=== PATIENT | female | born 1960 | race Caucasian/White ===

== ENCOUNTER 2019-07-05 12:25 | Inpatient (IN) | payer MEDICARE ==
[2019-07-05] MEDS ORDERED: SODIUM CHLORIDE 0.9% 500 ML 500 ML IV STA (13:08)
--- NOTE | 2019-07-05 13:13 | ED ---
General Adult HPI - General Chief complaint: Neuro Symptoms/Deficit Stated complaint: Arm Numbness, slurred speech Time Seen by Provider: 07/05/19 12:30 Source: patient, RN notes reviewed, old records reviewed Mode of arrival: ambulatory Limitations: no limitations - History of Present Illness Initial comments: This is a 58-year-old female presents emergency department stating that she started having symptoms on Monday which occurred in the evening she stated that her leg was weak and she was finding it a little more difficult to walk. Patient states Monday she felt dizzy had slight weakness in the arm and continue to have some weakness in the leg. Patient states on Monday she was unable to write her name in the week numbness of the arm and leg persisted until today. Patient denies any visual disturbance patient denies headache. Patient denies any left-sided disturbance. Patient denies any facial droop or slurred speech. Patient states she's had no history of stroke. Patient denies any chest pain shortness of breath or difficulty breathing. Patient has a recent fever chills or cough. Patient denies any dysuria hematuria urinary frequency. Patient denies any abdominal pain patient's nausea vomiting diarrhea. Patient denies any urinary incontinence or retention. - Related Data Home Medications Medication Instructions Recorded Confirmed Unable To Assess [Unable to Assess] 07/03/14 07/03/14 Allergies Allergy/AdvReac Type Severity Reaction Status Date / Time Sulfa (Sulfonamide Allergy Unknown Verified 07/05/19 12:31 Antibiotics) Review of Systems ROS Statement: Those systems with pertinent positive or pertinent negative responses have been documented in the HPI. ROS Other: All systems not noted in ROS Statement are negative. Past Medical History Past Medical History: Hypertension, Thyroid Disorder History of Any Multi-Drug Resistant Organisms: None Reported Additional Past Surgical History / Comment(s): thyroid removed Past Psychological History: No Psychological Hx Reported Smoking Status: Current every day smoker Past Alcohol Use History: None Reported Past Drug Use History: Marijuana General Exam - General Exam Comments Initial Comments: GENERAL: Patient is well-developed and well-nourished. Patient is nontoxic and well- hydrated and is in mild distress. ENT: Neck is soft and supple. No significant lymphadenopathy is noted. Oropharynx is clear. Moist mucous membranes. Neck has full range of motion without eliciting any pain. EYES: The sclera were anicteric and conjunctiva were pink and moist. Extraocular movements were intact and pupils were equal round and reactive to light. Eye lids were unremarkable. PULMONARY: Unlabored respirations. Good breath sounds bilaterally. No audible rales rhonchi or wheezing was noted. CARDIOVASCULAR: There is a regular rate and rhythm without any murmurs gallops or rubs. ABDOMEN: Soft and nontender with normal bowel sounds. No palpable organomegaly was noted. There is no palpable pulsatile mass. SKIN: Skin is clear with no lesions or rashes and otherwise unremarkable. NEUROLOGIC: Patient is alert and oriented x3. Cranial nerves II through XII are grossly intact. She has 2 out of 5 medical billing assistant strength on the right and unable to follow finger-nose testing on the right. Patient also has right leg weakness compared the left when trying to lift the leg plantar and dorsiflexion are normal. Patient has no appreciable sensation loss. Normal speech, volume and content. Symmetrical smile. MUSCULOSKELETAL: Normal extremities with adequate strength and full range of motion. LYMPHATICS: No significant lymphadenopathy is noted PSYCHIATRIC: Normal psychiatric evaluation. Limitations: no limitations Course Vital Signs 07/05/19 12:29 Temperature 98.1 F Pulse Rate 99 Respiratory 16 Rate Blood Pressure 166/131 O2 Sat by Pulse 99 Oximetry Medical Decision Making - Medical Decision Making EKG shows sinus tachycardia at 102 bpm LA interval 132 QRS is 78 QT interval 354 QTC is 461. Patient's EKG shows no ST segment elevation or depression or T wave abnormalities are noted. CT of the brain shows no acute abnormality. I spoke with Dr. trammell he agreed to admit the patient admitted the patient I wrote admitting orders. - Lab Data Result diagrams: 07/05/19 12:48 07/05/19 12:48 Lab Results 07/05/19 07/05/19 07/05/19 Range/Units 12:48 12:48 12:48 WBC 9.0 (3.8-10.6) k/uL RBC 4.47 (3.80-5.40) m/uL Hgb 14.1 (11.4-16.0) gm/dL Hct 41.8 (34.0-46.0) % MCV 93.6 (80.0-100.0) fL MCH 31.6 (25.0-35.0) pg MCHC 33.8 (31.0-37.0) g/dL RDW 12.7 (11.5-15.5) % Plt Count 388 (150-450) k/uL Neutrophils % 71 % Lymphocytes % 20 % Monocytes % 5 % Eosinophils % 1 % Basophils % 1 % Neutrophils # 6.4 (1.3-7.7) k/uL Lymphocytes # 1.8 (1.0-4.8) k/uL Monocytes # 0.4 (0-1.0) k/uL Eosinophils # 0.1 (0-0.7) k/uL Basophils # 0.0 (0-0.2) k/uL PT 9.5 (9.0-12.0) sec INR 0.9 (<1.2) APTT 26.3 (22.0-30.0) sec Sodium 140 (137-145) mmol/L Potassium 3.6 (3.5-5.1) mmol/L Chloride 103 (98-107) mmol/L Carbon Dioxide 28 (22-30) mmol/L Anion Gap 9 mmol/L BUN 22 H (7-17) mg/dL Creatinine 0.80 (0.52-1.04) mg/dL Est GFR (CKD-EPI)AfAm >90 (>60 ml/min/1.73 sqM) Est GFR (CKD-EPI)NonAf 82 (>60 ml/min/1.73 sqM) Glucose 143 H (74-99) mg/dL Calcium 10.8 H (8.4-10.2) mg/dL Total Bilirubin 0.5 (0.2-1.3) mg/dL AST 31 (14-36) U/L ALT 32 (4-34) U/L Alkaline Phosphatase 114 (38-126) U/L Troponin I (0.000-0.034) ng/mL Total Protein 7.9 (6.3-8.2) g/dL Albumin 4.5 (3.5-5.0) g/dL 07/05/19 Range/Units 12:48 WBC (3.8-10.6) k/uL RBC (3.80-5.40) m/uL Hgb (11.4-16.0) gm/dL Hct (34.0-46.0) % MCV (80.0-100.0) fL MCH (25.0-35.0) pg MCHC (31.0-37.0) g/dL RDW (11.5-15.5) % Plt Count (150-450) k/uL Neutrophils % % Lymphocytes % % Monocytes % % Eosinophils % % Basophils % % Neutrophils # (1.3-7.7) k/uL Lymphocytes # (1.0-4.8) k/uL Monocytes # (0-1.0) k/uL Eosinophils # (0-0.7) k/uL Basophils # (0-0.2) k/uL PT (9.0-12.0) sec INR (<1.2) APTT (22.0-30.0) sec Sodium (137-145) mmol/L Potassium (3.5-5.1) mmol/L Chloride (98-107) mmol/L Carbon Dioxide (22-30) mmol/L Anion Gap mmol/L BUN (7-17) mg/dL Creatinine (0.52-1.04) mg/dL Est GFR (CKD-EPI)AfAm (>60 ml/min/1.73 sqM) Est GFR (CKD-EPI)NonAf (>60 ml/min/1.73 sqM) Glucose (74-99) mg/dL Calcium (8.4-10.2) mg/dL Total Bilirubin (0.2-1.3) mg/dL AST (14-36) U/L ALT (4-34) U/L Alkaline Phosphatase (38-126) U/L Troponin I <0.012 (0.000-0.034) ng/mL Total Protein (6.3-8.2) g/dL Albumin (3.5-5.0) g/dL Disposition Clinical Impression: Cerebrovascular accident (CVA) Disposition: ADMITTED IP TO THIS [facility] Referrals: None,Stated [Primary Care Provider] - 1-2 days Time of Disposition: 15:06
[2019-07-05 13:30] LABS: Basophils % (A) 1 %; Eosinophils # (A) 0.1 k/uL (0-0.7); Eosinophils % (A) 1 %; HCT 41.8 % (34.0-46.0); HGB 14.1 gm/dL (11.4-16.0); Lymphocytes # (A) 1.8 k/uL (1.0-4.8); Lymphocytes % (A) 20 %; MCH 31.6 pg (25.0-35.0); MCHC 33.8 g/dL (31.0-37.0); MCV 93.6 fL (80.0-100.0); Mean Platelet Volume 7.2; Monocytes # (A) 0.4 k/uL (0-1.0); Monocytes % (A) 5 %; Neutrophils # (A) 6.4 k/uL (1.3-7.7); Neutrophils % (A) 71 %; Platelet Count 388 k/uL (150-450); RBC 4.47 m/uL (3.80-5.40); RDW 12.7 % (11.5-15.5)
[2019-07-05 13:35] LABS: ALT 32 U/L (4-34); AST 31 U/L (14-36); African American GFR (CKD) >90 (>60 ml/min/1.73 sqM); Albumin 4.5 g/dL (3.5-5.0); Alkaline Phosphatase 114 U/L (38-126); Anion Gap 9 mmol/L; Blood Urea Nitrogen 22 mg/dL (7-17); Calcium 10.8 mg/dL (8.4-10.2); Carbon Dioxide 28 mmol/L (22-30); Chloride 103 mmol/L (98-107); Glucose 143 mg/dL (74-99); Non-African American GFR(CKD) 82 (>60 ml/min/1.73 sqM); Potassium 3.6 mmol/L (3.5-5.1); Sodium 140 mmol/L (137-145); Total Bilirubin 0.5 mg/dL (0.2-1.3); Total Protein 7.9 g/dL (6.3-8.2)
[2019-07-05 13:40] LABS: INR 0.9 (<1.2); Partial Thromboplastin Time 26.3 sec (22.0-30.0); Prothrombin Time 9.5 sec (9.0-12.0)
--- NOTE | 2019-07-05 13:48 | CT ---
EXAMINATION TYPE: CT brain wo con for TPA DATE OF EXAM: 07/05/2019 COMPARISON: None INDICATION: Neuro deficit DLP: 1052.4 mGycm, Automated exposure control for dose reduction was used. CONTRAST: None CT of the brain is performed utilizing 3 mm thick sections through the posterior fossa and 3 mm thick sections through the remaining calvarium. Study is performed within 24 hours of arrival to the hosp ital. Dolichoectasia is evident. The vessels are diffusely dense which can be related to the patient's hemo globin status. No abnormal hyperdensity is present to suggest an acute intracranial hemorrhage. No mass lesion is evident. No acute infarcts are evident. Ventricles and sulci are appropriate for the patient age. Paranasal sinuses and mastoid air cells within the [id number] are clear. IMPRESSIONS: 1. No acute intracranial process. 2. Dolichoectasia of the basilar artery
--- NOTE | 2019-07-05 13:52 | XR ---
EXAMINATION TYPE: XR chest 2V DATE OF EXAM: 07/05/2019 COMPARISON: Prior chest x-ray dated 04/12/2012 HISTORY: Altered mental status TECHNIQUE: Frontal and lateral views of the chest are obtained. FINDINGS: There are prominent lung volumes, there is flattening of hemidiaphragms. Thoracic spondylo sis is present. The aorta is dense. There are overlying cardiac leads. Arthropathy noted in left shou lder radiating in right, there may be synovial osteochondromatosis. There is no focal air space opaci ty, pleural effusion, or pneumothorax seen. The cardiac silhouette size is within normal limits. T he osseous structures are intact. Suspect a spinal curvature. IMPRESSION: No acute cardiopulmonary process.
--- NOTE | 2019-07-05 16:09 | CT ---
EXAMINATION TYPE: CT angio head neck DATE OF EXAM: 07/05/2019 HISTORY: Left sided weakness COMPARISON: None CT DLP: 1052.4 mGycm. Automated Exposure Control for Dose Reduction was Utilized. TECHNIQUE: CTA scan of the neck is performed with IV Contrast, patient injected with 65 mL of Isovue 370, axial images are obtained, coronal and sagittal reformatted images are reviewed. Three-D recons tructed images are created on an independent workstation and reviewed. Source images are reviewed. FINDINGS: Carotid/Vascular Structures: There is a three-vessel arch. No significant flow-limiting stenosis at t he carotid bifurcations is evident. Internal carotid arteries appear normal. Cervical of [place]: Dolichoectasia is again evident. Posterior cerebral vasculature is unremarkable. Internal carotid arteries bifurcate normally into A1 and M1 segments. A2 segments are normal. The ant erior communicating artery is patent. Left Posterior communicating artery is patent. Right posterior communicating artery is patent. IMPRESSION: 1. No flow-limiting stenosis bilateral carotid bifurcations. 2. Dolichoectasia.
--- NOTE | 2019-07-05 16:13 | P.CNNES ---
History of Present Illness Consult date: 07/05/19 Requesting physician: Ludin Patel Reason for Consult: CVA History of Present Illness: Patient is a 58-year-old female with history of hypertension, tobacco use, states that on Monday night 07/01/2019 she wanted to let the dog out, she noticed weakness in the right leg. The next day she felt dizziness, but was still able to drive her car. She still could walk. Next day, on Monday, her right hand felt weak, could not use her right hand. On she just stayed in the home and did not do much. As her symptoms persisted, she decided to come to the ER. patient denies any slurred speech or problem with the vision. She denies any numbness or tingling. Denies headache. Patient's vital signs in the ER showed blood pressure 166/131, normal temperature Patient underwent computed tomography scan of the head, which revealed no acute intracranial process. Dolichoectasia of the basilar artery. On my review, there is a slight hyperdensity in the left basal ganglia, concerning for small petechial hemorrhage. patient had a CTA of head and neck, the results of which is pending, but according to ED physician's report, was told negative, with no large vessel occlusion. EKG shows sinus tachycardia. Chest x-ray showed no acute process. patient's CBC, PT/PTT is normal. Chem-7 is normal. Liver panel normal. patient has history of hypertension, denies diabetes. She has smoked one third pack per day since last 30 years. Patient does not take any medication prescribed. She does take Excedrin almost everyday for chronic migraines, sometimes up to 3 times a day. Review of Systems patient denies any double vision, loss of vision, focal numbness. patient does complaint of focal weakness.denies any chest pain, shortness of breath. Past Medical History Past Medical History: Hypertension, Thyroid Disorder History of Any Multi-Drug Resistant Organisms: None Reported Additional Past Surgical History / Comment(s): thyroid removed Past Psychological History: No Psychological Hx Reported Smoking Status: Current every day smoker Past Alcohol Use History: None Reported Past Drug Use History: Marijuana Medications and Allergies Home Medications Medication Instructions Recorded Confirmed Type Unable To Assess [Unable to Assess] 07/03/14 07/03/14 History Allergies Allergy/AdvReac Type Severity Reaction Status Date / Time Sulfa (Sulfonamide Allergy Unknown Verified 07/05/19 12:31 Antibiotics) Physical Examination - Vital Signs Vital Signs: Vital Signs Temp Pulse Resp BP Pulse Ox 07/05/19 12:29 98.1 F 99 16 166/131 99 Intake and Output 07/05/19 07/05/19 07/05/19 06:59 14:59 22:59 Other: Weight 61.235 kg on examination patient is a middle aged female, very pleasant, in no distress. She is alert and awake fully oriented. Her speech and language functions are significant for mild dysarthria but no aphasia. On cranial nerve examination pupils are round and reactive to light, visual soriano are full on confrontation with no neglect. She patient has mild right facial weakness, central type. Tongue protrudes to the midline. Palatal elevation and sensation normal. Patient has significant right pronator drift. The strength is normal in left arm and both legs. In the right upper limb, deltoid is 4+ to 5-, biceps and triceps are normal. Baggageman is only 2-3. Sensations are very slightly decreased in the right arm as compared to the left. Patient's fine motor is significantly slow on the right. Patient walks with slight limp on the right. There is no carotid bruit or murmur, peripheral pulses present. Results - Laboratory Findings CBC and BMP: 07/05/19 12:48 07/05/19 12:48 Abnormal Lab Findings: Abnormal Labs 07/05/19 12:48 BUN 22 H Glucose 143 H Calcium 10.8 H Assessment and Plan Assessment: * 58-year-old female with history of hypertension, tobacco use, admitted with right facial brachial weakness, with slight dysarthria. Computed tomography scan of the head revealed no acute ischemia, although revealed small hyperdensity in the left basal ganglia, concerning for small basal ganglionic hemorrhage, versus basal ganglia calcification. * Hypertension * Tobacco use. Plan: * Patient to undergo a stat MRI of the brain to evaluate for an acute stroke. * CTA of head and neck has been completed, the results are pending. * Will hold off on antiplatelet medication, until intracranial hemorrhage has been ruled out. * We will check fasting a.m. lipid panel and hemoglobin A1c. * 2-D echo with bubble study to rule out PFO. * Recommended tobacco cessation. * Dr. Ganley will be covering over the weekend. Addendum: Patient's MRI was performed, which revealed no evidence of intracranial hemorrhage. There is evidence of an acute ischemic stroke involving the posterior limb of the left internal capsule, most likely lacunar stroke. Patient will be started on Plavix 75 mg daily with aspirin 81 mg. CTA of head and neck showed no flow-limiting stenosis bilateral carotid bifurcation. Dolichoectasia. PT OT evaluate gait. Speech therapy.
--- NOTE | 2019-07-05 16:26 | MR ---
EXAMINATION TYPE: MR brain wo con DATE OF EXAM: 07/05/2019 COMPARISON: 07/05/2019 CT brain HISTORY: Rt arm numbness and Rt leg weakness CONTRAST: Performed utilizing 0 mL intravenous Gadavist gadolinium contrast. TECHNIQUE: Multiplanar, multiecho imaging on a 3.0 Martha magnet is performed through the brain. Stud y is performed within 24 hours of arrival to the hospital. The craniovertebral junction is normal. The pituitary is normal. Diffusion-weighted imaging is performed. There is a small focus of increased signal on diffusion wit hin the posterior left basal ganglion. This is compatible with acute ischemic area. A suspicious abnormality to suggest hemorrhage in the more mid anterior portion of the basal ganglia is not evident. There are multiple subcortical periventricular and deep white matter changes present scattered throug hout the brain, likely on the basis of chronic white matter ischemic changes. Ventricles and sulci are appropriate for the patient age. Patient's dolichoectasia is again evident. IMPRESSIONS: 1. 0.5 x 0.9 cm diffusion hyperintensity compatible with an acute ischemic change adjacent to the pos terior limb internal capsule left basal ganglion. 2. No suspicious blooming artifact suggest intracranial hemorrhage. 3. Chronic appearing periventricular white matter ischemic changes. 4. Dolichoectasia
[2019-07-05] MEDS ORDERED: hydrALAZINE HCL 20 MG/ML 1 ML VIAL IVP PRN (17:22)
[2019-07-05 17:24] LABS: Cholesterol 264 mg/dL (<200); HDL Cholesterol 69 mg/dL (40-60); LDL Cholesterol,Calculated 160 mg/dL (0-99); Triglycerides 175 mg/dL (<150)
[2019-07-05] MEDS: NICOTINE 21MG/24HR PATCH TRANSDERM SCH (17:32)
[2019-07-05] MEDS: LISINOPRIL 10 MG TAB PO SCH (17:32)
[2019-07-05] MEDS: CLOPIDOGREL 75 MG TAB PO SCH (19:35)
[2019-07-05] MEDS: ASPIRIN 81 MG PO SCH (19:35)
[2019-07-05] MEDS: HEPARIN SODIUM,PORCINE 5,000 UNIT/ML 1 ML VIAL SQ SCH (22:33)
[2019-07-05] MEDS: ATORVASTATIN 40 MG TAB PO SCH (22:33)
[2019-07-06 01:20] LABS: Hemoglobin A1C 6.2 % (4.0-6.0)
[2019-07-06 06:34] LABS: African American GFR (CKD) >90 (>60 ml/min/1.73 sqM); Anion Gap 6 mmol/L; Basophils % (A) 1 %; Blood Urea Nitrogen 18 mg/dL (7-17); Calcium 9.9 mg/dL (8.4-10.2); Carbon Dioxide 29 mmol/L (22-30); Chloride 106 mmol/L (98-107); Cholesterol 240 mg/dL (<200); Eosinophils # (A) 0.2 k/uL (0-0.7); Eosinophils % (A) 3 %; Glucose 96 mg/dL (74-99); HCT 42.7 % (34.0-46.0); HDL Cholesterol 67 mg/dL (40-60); LDL Cholesterol,Calculated 147 mg/dL (0-99); Lymphocytes # (A) 2.1 k/uL (1.0-4.8); Lymphocytes % (A) 28 %; MCH 31.2 pg (25.0-35.0); MCHC 32.9 g/dL (31.0-37.0); MCV 94.7 fL (80.0-100.0); Mean Platelet Volume 6.8; Monocytes # (A) 0.5 k/uL (0-1.0); Monocytes % (A) 7 %; Neutrophils # (A) 4.4 k/uL (1.3-7.7); Neutrophils % (A) 58 %; Non-African American GFR(CKD) >90 (>60 ml/min/1.73 sqM); Platelet Count 345 k/uL (150-450); RDW 12.7 % (11.5-15.5); Sodium 141 mmol/L (137-145); Triglycerides 128 mg/dL (<150); WBC 7.5 k/uL (3.8-10.6)
[2019-07-06] MEDS ORDERED: ALPRAZolam 0.5 MG TAB PO PRN (08:54)
--- NOTE | 2019-07-06 09:05 | P.PN ---
Subjective this is a pleasant 58 years old femalewith past medical history of hypertension, hypothyroidism status post thyroid surgery, secured smoker every day. Presents with weakness of the right upper and lower extremities. Patient states that symptoms since started 4 days ago with right leg weakness that is improved gradually, next day she had some dizziness which is also resolved over 2 days ago she started having weakness in her right hand which is gets progress yesterday to both right hand and leg however she was babysitting so she did not come to the hospital until today. Currently she barely can move her right upper extremity and her first beater is so weak however her right lower extremity is moving better although is weaker compared to the left side. Patient denies blurred vision or swallowing difficulty or slurred speech. No headache. Patient smokes about a pack which last for 4 days. She denies alcohol or illicit tracts. Vitas looks stable and blood pressure is 166/131.CBC, INR, BMP and liver enzymes were unremarkable. Troponin is negative.chest x-ray: No acute process. EKG showing sinus tachycardia at [address]-T changes. CT of the brain showing no acute process. 07/06/2019 patient is fully awake and oriented this morning she looks anxious. She denies chest pain or dyspnea. She still have the same weakness in her right upper extremity and to lesser extent her right lower extremity.vitals are stable and labs are unremarkable, except for increased triglycerides. Patient was started on Lipitor. She used to use Exidine which has aspirin and it for her headaches frequently at home about 6 tablets each day. We'll stop that and asked the patient to take baby aspirin 81 mg daily and she agrees. Patient is counseled about smoking and nicotine patch is offered and ordered. MRI of the brain showing left basal ganglion stroke however CT of the head and neck is negative. Patient informed about her diagnosis of stroke. Stop Excedrin and start baby aspirin and Plavix as per neurologist recommendation. Consult in a service for rehab, patient counseled that she agrees needed. review of systems CONSTITUTIONAL: No fever, no malaise, no fatigue. HEENT: No recent visual problems or hearing problems. Denied any sore throat. CARDIOVASCULAR: No orthopnea, PND, no palpitations, no syncope. PULMONARY: No shortness of breath, no cough, no hemoptysis. GASTROINTESTINAL: No diarrhea, no nausea, no vomiting, no abdominal pain. Normoactive bowel sounds. NEUROLOGICAL: No headaches, HEMATOLOGICAL: Denies any bleeding or petechiae. GENITOURINARY: Denies any burning micturition, frequency, or urgency. MUSCULOSKELETAL/RHEUMATOLOGICAL: Denies any joint pain, swelling, or any muscle pain. ENDOCRINE: Denies any polyuria or polydipsia. Objective - Vital Signs Vital signs: Vital Signs Temp 97.9 F 07/06/19 04:00 Pulse 67 07/06/19 04:00 Resp 18 07/06/19 04:00 BP 135/90 07/06/19 04:00 Pulse Ox 100 07/06/19 04:00 Intake & Output 07/05/19 07/06/19 07/06/19 18:59 06:59 18:59 Intake Total 240 Balance 240 Weight 61.235 kg 60.2 kg Intake: Oral 240 Other: # Voids 0 2 - Exam GENERAL: The patient is alert and oriented x3, not in any acute distress. Well developed, well nourished. HEENT: Pupils are round and equally reacting to light. EOMI. No scleral icterus. No conjunctival pallor. Normocephalic, atraumatic. No pharyngeal erythema. No thyromegaly. CARDIOVASCULAR: S1 and S2 present. No murmurs, rubs, or gallops. PULMONARY: Chest is clear to auscultation, no wheezing or crackles. ABDOMEN: Soft, nontender, nondistended, normoactive bowel sounds. No palpable organomegaly. MUSCULOSKELETAL: No joint swelling or deformity. EXTREMITIES: No cyanosis, clubbing, or pedal edema. -NEUROLOGICAL: patient has dictated of the face towards the left side.her right upper extremity is weak 2-3/5, and the right lower extremity is weak 4/5. Left side strength is 5/5. Sensation is intact. SKIN: No rashes. No petechiae - Labs CBC & Chem 7: 07/06/19 05:55 07/06/19 05:55 Labs: Abnormal Lab Results - Last 24 Hours (Table) 07/05/19 07/05/19 07/05/19 Range/Units 12:48 12:48 12:48 BUN 22 H (7-17) mg/dL Glucose 143 H (74-99) mg/dL Hemoglobin A1c 6.2 H (4.0-6.0) % Calcium 10.8 H (8.4-10.2) mg/dL Triglycerides 175 H (<150) mg/dL Cholesterol 264 H (<200) mg/dL LDL Cholesterol, Calc 160 H (0-99) mg/dL HDL Cholesterol 69 H (40-60) mg/dL 07/06/19 Range/Units 05:55 BUN 18 H (7-17) mg/dL Glucose (74-99) mg/dL Hemoglobin A1c (4.0-6.0) % Calcium (8.4-10.2) mg/dL Triglycerides (<150) mg/dL Cholesterol 240 H (<200) mg/dL LDL Cholesterol, Calc 147 H (0-99) mg/dL HDL Cholesterol 67 H (40-60) mg/dL Assessment and Plan Assessment: 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 Continue with aspirin and Plavix.. we'll consult Dr. Sigala service for possible rehab.continue with Lipitor, echocardiogram. Nicotine patch. add xanax for anxiety. Stop home dose of Excedrin and continue with baby aspirin and Plavix, patient is counseled about this recommendation and she agrees. Labs and medication were reviewed.. Continue same treatment. Continue with symptomatic treatment. Resume home medication. Monitor lytes and vitals. DVT and GI prophylaxis. Further recommendations of the clinical course of the patient DVT prophylaxis: Subcutaneous heparin GI Prophylaxis: Pepcid PT/OT: Pending Prognosis is guarded
[2019-07-06] MEDS: PANTOPRAZOLE 40 MG/10 ML VIAL IVP SCH (09:26)
[2019-07-06] MEDS: ASPIRIN 81 MG PO SCH (09:26)
[2019-07-06] MEDS: CLOPIDOGREL 75 MG TAB PO SCH (09:26)
[2019-07-06] MEDS: LISINOPRIL 10 MG TAB PO SCH (09:26)
[2019-07-06] MEDS: HEPARIN SODIUM,PORCINE 5,000 UNIT/ML 1 ML VIAL SQ SCH ×2 (09:26→21:32)
[2019-07-06] MEDS: ATORVASTATIN 40 MG TAB PO SCH (09:26)
[2019-07-06] MEDS: NICOTINE 21MG/24HR PATCH TRANSDERM SCH (09:27)
[2019-07-06] MEDS ORDERED: ACETAMINOPHEN TAB 325 MG TAB PO PRN (09:50)
--- NOTE | 2019-07-06 11:01 | ECHOF ---
Referral Reason:CVA MEASUREMENTS -------- HEIGHT: 152.4 cm WEIGHT: 59.9 kg BP: 135/90 IVSd: 1.7 cm (0.6 - 1.1) LVIDd: 3.7 cm (3.9 - 5.3) LVPWd: 1.5 cm (0.6 - 1.1) IVSs: 1.9 cm LVIDs: 2.6 cm LVPWs: 1.9 cm LAESV Index (A-L): 27.83 ml/m Ao Diam: 3.8 cm (2.0 - 3.7) AV Cusp: 2.3 cm (1.5 - 2.6) LA Diam: 3.1 cm (2.7 - 3.8) MV EXCURSION: 12.396 mm (> 18.000) MV EF SLOPE: 66 mm/s (70 - 150) EPSS: 0.6 cm MV E Lew: 0.56 m/s MV DecT: 207 ms MV A Lew: 0.76 m/s MV E/A Ratio: 0.73 RAP: 5.00 mmHg RVSP: 19.90 mmHg FINDINGS -------- Sinus rhythm. This was a technically difficult study with suboptimal apical views. Suboptimal image quality - poor subcostal views. The left ventricular size is normal. There is severe concentric left ventricular hypertrophy. The re is normal global left ventricular contractility. Overall left ventricular systolic function is n ormal with, an EF between 60 - 65 %. The diastolic filling pattern is normal for the age of the pat ient 13.66. The right ventricle is normal in size. Normal LA size by volume 22+/-6 ml/m2. The right atrial size is normal. Agitated saline could not be performed due to TDS VIEWS The aortic valve was not well visualized. There is no evidence of aortic regurgitation. There is no evidence of aortic stenosis. Mild mitral annular calcification present. No mitral regurgitation. Mild tricuspid regurgitation present. There is no evidence of pulmonary hypertension. The right v entricular systolic pressure, as measured by Doppler, is 19.90mmHg. The pulmonic valve was not well visualized. There is no pulmonic regurgitation present. The aortic root is dilated measuring {3.8 cm}. There is no pericardial effusion. CONCLUSIONS -------- 1. Sinus rhythm. 2. This was a technically difficult study with suboptimal apical views. 3. Suboptimal image quality - poor subcostal views. 4. The left ventricular size is normal. 5. There is severe concentric left ventricular hypertrophy. 6. There is normal global left ventricular contractility. 7. Overall left ventricular systolic function is normal with, an EF between 60 - 65 %. 8. The diastolic filling pattern is normal for the age of the patient 13.66 9. The right ventricle is normal in size. 10. Normal LA size by volume 22+/-6 ml/m2. 11. The right atrial size is normal. 12. The aortic valve was not well visualized. 13. There is no evidence of aortic regurgitation. 14. There is no evidence of aortic stenosis. 15. Mild mitral annular calcification present. 16. No mitral regurgitation. 17. Mild tricuspid regurgitation present. 18. There is no evidence of pulmonary hypertension. 19. The right ventricular systolic pressure, as measured by Doppler, is 19.90mmHg. 20. The pulmonic valve was not well visualized. 21. There is no pulmonic regurgitation present. 22. The aortic root is dilated measuring {3.8 cm}. 23. There is no pericardial effusion. ASSISTANT FITNESS MANAGER: An Nance RDCS
--- NOTE | 2019-07-06 11:32 | P.PN ---
Subjective Progress Note Date: 07/06/19 Principal diagnosis: Cerebral infarct Ms. Susan Ly is seen in neurologic follow-up on 07/06/2019. She feels as if her symptoms are unchanged from yesterday. She continues to have right-sided weakness. 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 Her right arm is weaker than her right leg. She denies difficulty swallowing. She does feel as if her speech is not normal. Objective - Vital Signs Vital signs: Vital Signs Temp 98 F 07/06/19 08:00 Pulse 78 07/06/19 08:00 Resp 18 07/06/19 08:00 BP 150/101 07/06/19 08:00 Pulse Ox 97 07/06/19 08:00 Intake & Output 07/05/19 07/06/19 07/06/19 18:59 06:59 18:59 Intake Total 240 480 Balance 240 480 Weight 61.235 kg 60.2 kg Intake: Oral 240 480 Other: # Voids 0 2 - Exam Gen.: The patient is resting in the bed. She is in no acute distress. Heart: Regular rate and rhythm Neurologic examination Mental status: Patient is awake, alert and oriented 3. Her speech is slightly dysarthric. Cranial nerves: Pupils are equal, round and reactive to light. Extraocular movements are intact. There is right facial weakness. Tongue protrudes to the right of midline. Shoulder shrug is symmetric. Motor: Right gas welder apprentice strength 2-3/5. Right biceps 4+/5. Right wrist and finger extensors 3/5. Right hip flexors 4/5. Sensation: Intact - Labs CBC & Chem 7: 07/06/19 05:55 07/06/19 05:55 Labs: Abnormal Lab Results - Last 24 Hours (Table) 07/05/19 07/05/19 07/05/19 Range/Units 12:48 12:48 12:48 BUN 22 H (7-17) mg/dL Glucose 143 H (74-99) mg/dL Hemoglobin A1c 6.2 H (4.0-6.0) % Calcium 10.8 H (8.4-10.2) mg/dL Triglycerides 175 H (<150) mg/dL Cholesterol 264 H (<200) mg/dL LDL Cholesterol, Calc 160 H (0-99) mg/dL HDL Cholesterol 69 H (40-60) mg/dL 07/06/19 Range/Units 05:55 BUN 18 H (7-17) mg/dL Glucose (74-99) mg/dL Hemoglobin A1c (4.0-6.0) % Calcium (8.4-10.2) mg/dL Triglycerides (<150) mg/dL Cholesterol 240 H (<200) mg/dL LDL Cholesterol, Calc 147 H (0-99) mg/dL HDL Cholesterol 67 H (40-60) mg/dL Assessment and Plan Assessment: Impressions/Plan: 1) left basal ganglia infarct with right upper> lower extremity weakness-MRI positive. Continue stroke workup. Antiplatelet therapy 2-D echocardiogram Physical, occupational and speech therapy consultations High-dose statin therapy 2) hypertension 3) hyperlipidemia 4) must control stroke risk factors, weight loss, exercise and healthy diet Time with Patient: Less than 30 (25 minutes spent with patient via teleneurology)
[2019-07-06] MEDS: ALPRAZolam 0.5 MG TAB PO SCH ×2 (19:13→21:32)
[2019-07-07 07:01] LABS: Basophils # (A) 0.1 k/uL (0-0.2); Basophils % (A) 1 %; Eosinophils # (A) 0.3 k/uL (0-0.7); Eosinophils % (A) 4 %; HCT 42.1 % (34.0-46.0); HGB 13.7 gm/dL (11.4-16.0); Lymphocytes % (A) 28 %; MCH 31.5 pg (25.0-35.0); MCHC 32.5 g/dL (31.0-37.0); MCV 96.9 fL (80.0-100.0); Mean Platelet Volume 6.9; Monocytes # (A) 0.6 k/uL (0-1.0); Monocytes % (A) 8 %; Neutrophils % (A) 55 %; Platelet Count 348 k/uL (150-450); RBC 4.35 m/uL (3.80-5.40); RDW 12.8 % (11.5-15.5); WBC 7.3 k/uL (3.8-10.6)
[2019-07-07 07:15] LABS: African American GFR (CKD) >90 (>60 ml/min/1.73 sqM); Anion Gap 7 mmol/L; Blood Urea Nitrogen 22 mg/dL (7-17); Calcium 9.5 mg/dL (8.4-10.2); Carbon Dioxide 27 mmol/L (22-30); Chloride 106 mmol/L (98-107); Glucose 94 mg/dL (74-99); Non-African American GFR(CKD) >90 (>60 ml/min/1.73 sqM); Potassium 4.2 mmol/L (3.5-5.1); Sodium 140 mmol/L (137-145)
[2019-07-07] MEDS: HEPARIN SODIUM,PORCINE 5,000 UNIT/ML 1 ML VIAL SQ SCH ×2 (09:04→20:38)
[2019-07-07] MEDS: ALPRAZolam 0.5 MG TAB PO SCH ×3 (09:05→20:38)
[2019-07-07] MEDS: ATORVASTATIN 40 MG TAB PO SCH (09:05)
[2019-07-07] MEDS: LISINOPRIL 10 MG TAB PO SCH (09:05)
[2019-07-07] MEDS: PANTOPRAZOLE 40 MG/10 ML VIAL IVP SCH (09:05)
[2019-07-07] MEDS: NICOTINE 21MG/24HR PATCH TRANSDERM SCH (09:05)
[2019-07-07] MEDS: CLOPIDOGREL 75 MG TAB PO SCH (09:05)
[2019-07-07] MEDS: ASPIRIN 81 MG PO SCH (09:05)
--- NOTE | 2019-07-07 12:28 | P.PN ---
Subjective this is a pleasant 58 years old femalewith past medical history of hypertension, hypothyroidism status post thyroid surgery, secured smoker every day. Presents with weakness of the right upper and lower extremities. Patient states that symptoms since started 4 days ago with right leg weakness that is improved gradually, next day she had some dizziness which is also resolved over 2 days ago she started having weakness in her right hand which is gets progress yesterday to both right hand and leg however she was babysitting so she did not come to the hospital until today. Currently she barely can move her right upper extremity and her director of partner marketing is so weak however her right lower extremity is moving better although is weaker compared to the left side. Patient denies blurred vision or swallowing difficulty or slurred speech. No headache. Patient smokes about a pack which last for 4 days. She denies alcohol or illicit tracts. Vitas looks stable and blood pressure is 166/131.CBC, INR, BMP and liver enzymes were unremarkable. Troponin is negative.chest x-ray: No acute process. EKG showing sinus tachycardia at [address]-T changes. CT of the brain showing no acute process. 07/06/2019 patient is fully awake and oriented this morning she looks anxious. She denies chest pain or dyspnea. She still have the same weakness in her right upper extremity and to lesser extent her right lower extremity.vitals are stable and labs are unremarkable, except for increased triglycerides. Patient was started on Lipitor. She used to use Exidine which has aspirin and it for her headaches frequently at home about 6 tablets each day. We'll stop that and asked the patient to take baby aspirin 81 mg daily and she agrees. Patient is counseled about smoking and nicotine patch is offered and ordered. MRI of the brain showing left basal ganglion stroke however CT of the head and neck is negative. Patient informed about her diagnosis of stroke. Stop Excedrin and start baby aspirin and Plavix as per neurologist recommendation. Consult in a service for rehab, patient counseled that she agrees needed. 07/07/2019 Patient is clinically stable, she showed some improvement in her right and weakness, also her leg strength is improving gradually and she couldn't walk a little bit however her approximately is significantly weaker than the left side and administrative officer consult is still pending as today's weekend and not available in house. Ejection fraction 60-65% and hemoglobin A1c is 6.2%. Patient is already on aspirin, Plavix and Lipitor. Vitals are stable, blood pressure 167/117. We are going to add Norvasc. Labs reviewed and are unremarkable. Objective - Vital Signs Vital signs: Vital Signs Temp 97.9 F 07/07/19 08:00 Pulse 78 07/07/19 08:00 Resp 18 07/07/19 08:00 BP 167/117 07/07/19 08:00 Pulse Ox 98 07/07/19 08:00 Intake & Output 07/06/19 07/07/19 07/07/19 18:59 06:59 18:59 Intake Total 1140 240 480 Balance 1140 240 480 Weight 62.1 kg Intake: Oral 1140 240 480 Other: # Voids 2 - Exam GENERAL: The patient is alert and oriented x3, not in any acute distress. Well developed, well nourished. HEENT: Pupils are round and equally reacting to light. EOMI. No scleral icterus. No conjunctival pallor. Normocephalic, atraumatic. No pharyngeal erythema. No thyromegaly. CARDIOVASCULAR: S1 and S2 present. No murmurs, rubs, or gallops. PULMONARY: Chest is clear to auscultation, no wheezing or crackles. ABDOMEN: Soft, nontender, nondistended, normoactive bowel sounds. No palpable organomegaly. MUSCULOSKELETAL: No joint swelling or deformity. EXTREMITIES: No cyanosis, clubbing, or pedal edema. -NEUROLOGICAL: patient has dictated of the face towards the left side.her right upper extremity is weak 2-3/5, and the right lower extremity is weak 4/5. Left side strength is 5/5. Sensation is intact. SKIN: No rashes. 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 Continue with aspirin and Plavix.. we'll consult Dr. Zakiya service for possible rehab.continue with L ipitor, add Norvasc. Nicotine patch. add xanax for anxiety. Stop home dose of Excedrin and continue with baby aspirin and Plavix, patient is counseled about this recommendation and she agrees. Labs and medication were reviewed.. Continue same treatment. Continue with symptomatic treatment. Resume home medication. Monitor lytes and vitals. DVT and GI prophylaxis. Further recommendations of the clinical course of the patient DVT prophylaxis: Subcutaneous heparin GI Prophylaxis: Pepcid PT/OT: Pending Prognosis is guarded
[2019-07-07] MEDS: amLODIPine 5 MG TAB PO SCH (13:06)
[2019-07-07] MEDS: SENNOSIDES 8.6 MG TAB PO PRN (21:33)
[2019-07-07] MEDS: DOCUSATE 100 MG CAP PO PRN (21:33)
[2019-07-08] MEDS: PANTOPRAZOLE 40 MG TABLET PO SCH (05:58)
--- NOTE | 2019-07-08 06:26 | P.CONS ---
History of Present Illness - Chief Complaint Gait disturbance - History of Present Illness I had the opportunity to see patient for inpatient rehab consultation with regard to gait disturbance. She was admitted to [facility] July 05 acute onset right-sided weakness. Seen in consultation by neurology, . Head CT Demonstrates Dolichoectasia Basilar Artery. Chest X-Ray Negative. Angiogram CT Demonstrates Dolichoectasia. Brain MRI Demonstrates Lesion and Left Posterior Limb Internal Capsule Basal Ganglia, Chronic Periventricular Change and Dolichoectasia. PT Reports Supervision for Gait 26 Feet with Hemiwalker. OT and Speech Prescribed. Previous Functional History As Elicited Patient: 58-year-old Right-Handed White Female Who Is Single Lives in 3 Floor Duplex with Daughter and Daughter's . Daughter Does Cooking and Laundry. Patient Disability Due To Back Issues. Describes Independent with Driving, Standing Shower and Occasionally with Standard Cane. Does Not Have PMD. Smokes a Quarter Pack per Day and Denies Alcohol. Family History Diabetes and Stroke in Father. Review of Systems Review of systems: ENT: Denies sneezes or discharge. Eyes: Denies discharge or photophobia. Cardiac: Denies chest pain or palpitation. Pulmonary: Denies cough or shortness of breath. Breast: Denies discharge or lumps. Gastrointestinal: Denies nausea, emesis, constipation, diarrhea. Genitourinary: Denies discharge or frequency. Musculoskeletal: Denies muscle or bone aches. Neurologic: Right-sided weakness and numbness, more so arm and leg. Endocrine: Denies shakes or sweats. Oncology: Denies cancers. Dermatologic: Denies rash, itching, pruritus. ALLERGY/immunology: Denies sneezes, rashes. Past Medical History Past Medical History: Hypertension, Thyroid Disorder History of Any Multi-Drug Resistant Organisms: None Reported Additional Past Surgical History / Comment(s): thyroid removed Past Anesthesia/Blood Transfusion Reactions: No Reported Reaction Past Psychological History: No Psychological Hx Reported Smoking Status: Current every day smoker Past Alcohol Use History: None Reported Past Drug Use History: Marijuana - Past Family History Father Family Medical History: Diabetes Mellitus, Hypertension Mother Family Medical History: Hypertension Medications and Allergies Home Medications Medication Instructions Recorded Confirmed Type [id number] 2 tab PO Q4HR PRN 07/05/19 07/05/19 History [Excedrin] diphenhydrAMINE [Benadryl] 25 mg PO DAILY 07/05/19 07/05/19 History Allergies Allergy/AdvReac Type Severity Reaction Status Date / Time Sulfa (Sulfonamide Allergy Unknown Verified 07/05/19 19:22 Antibiotics) Physical Exam Vitals: Vital Signs Temp Pulse Resp BP Pulse Ox 07/08/19 06:06 85 18 135/78 98 07/07/19 22:08 98.6 F 88 18 139/80 97 07/07/19 15:59 99 F 92 16 129/83 99 07/07/19 12:00 97.6 F 89 16 134/98 99 07/07/19 08:00 97.9 F 78 18 167/117 98 Intake and Output 07/07/19 07/07/19 07/08/19 14:59 22:59 06:59 Intake Total 1320 360 Balance 1320 360 Intake: Oral 1320 360 Other: # Voids 1 1 Weight 62.5 kg Skin: Good color, texture, turgor. General: Medium build and comfortable appearance. Head: Normocephalic, atraumatic. Eyes: Symmetric. Pupils equal round. Ears: Symmetric. Hearing within normal limits. Mouth: Clear. Neck: Supple. Carotid without bruit. Cardiac: Regular rate and rhythm. Lungs: Clear anteriorly and posteriorly. Abdomen: Soft active nontender. Extremities: Normal tone. Neurological: Mental status: Alert, cooperative, pleasant. Cranial nerves: Symmetric facial tone and trapezius. Motor: Normal strength and isolation left arm and leg. Right arm poor and right leg with elements of isolation throughout. Sensation: Intact depressed right arm more than right leg. DTRs: Symmetric and equal throughout. Mobility: Sits upright without assistance or verbal cueing or loss of balance. Results CBC & Chem 7: 07/07/19 06:26 07/07/19 06:26 Labs: Abnormal Lab Results - Last 24 Hours (Table) 07/07/19 Range/Units 06:26 BUN 22 H (7-17) mg/dL Assessment and Plan (1) Cerebrovascular accident (CVA) Current Visit: Yes Status: Acute Code(s): I63.9 - CEREBRAL INFARCTION, UNSPECIFIED SNOMED Code(s): 622386604 Plan: Impression: 1. Gait disturbance. 2. Acute onset stroke result in right hemiparesthesias. 3. Hypertension. 4. Hypothyroid. Constant plan: At this time PT ongoing and OT and speech prescribed. We will follow with yourself for possible safety concerns and need and benefit of inpatient rehab. This was discussed with patient.
[2019-07-08] MEDS: NICOTINE 21MG/24HR PATCH TRANSDERM SCH (08:54)
[2019-07-08] MEDS: CLOPIDOGREL 75 MG TAB PO SCH (08:54)
[2019-07-08] MEDS: amLODIPine 5 MG TAB PO SCH (08:54)
[2019-07-08] MEDS: ATORVASTATIN 40 MG TAB PO SCH (08:54)
[2019-07-08] MEDS: ALPRAZolam 0.5 MG TAB PO SCH ×3 (08:54→19:44)
[2019-07-08] MEDS: LISINOPRIL 10 MG TAB PO SCH (08:54)
[2019-07-08] MEDS: HEPARIN SODIUM,PORCINE 5,000 UNIT/ML 1 ML VIAL SQ SCH ×2 (08:55→20:11)
[2019-07-08] MEDS: ASPIRIN 81 MG PO SCH (08:56)
[2019-07-08] MEDS: SENNOSIDES 8.6 MG TAB PO PRN ×2 (09:08→20:11)
[2019-07-08] MEDS: DOCUSATE 100 MG CAP PO PRN ×2 (09:08→20:11)
--- NOTE | 2019-07-08 15:51 | P.PN ---
Subjective Progress Note Date: 07/08/19 Principal diagnosis: This is a pleasant 58 years old female with past medical history of hypertension, hypothyroidism status post thyroid surgery, secured smoker every day. Presents with weakness of the right upper and lower extremities. Patient states that symptoms since started 4 days ago with right leg weakness that is improved gradually, next day she had some dizziness which is also resolved over 2 days ago she started having weakness in her right hand which is gets progress yesterday to both right hand and leg however she was babysitting so she did not come to the hospital until today. Currently she barely can move her right upper extremity and her health and wellness sales consultant is so weak however her right lower extremity is moving better although is weaker compared to the left side. Patient denies blurred vision or swallowing difficulty or slurred speech. No headache. Patient smokes about a pack which last for 4 days. She denies alcohol or illicit tracts. Vitas looks stable and blood pressure is 166/131.CBC, INR, BMP and liver enzymes were unremarkable. Troponin is negative.chest x-ray: No acute process. EKG showing sinus tachycardia at [address]-T changes. CT of the brain showing no acute process. 07/06/2019 patient is fully awake and oriented this morning she looks anxious. She denies chest pain or dyspnea. She still have the same weakness in her right upper extremity and to lesser extent her right lower extremity.vitals are stable and labs are unremarkable, except for increased triglycerides. Patient was started on Lipitor. She used to use Exidine which has aspirin and it for her headaches frequently at home about 6 tablets each day. We'll stop that and asked the patient to take baby aspirin 81 mg daily and she agrees. Patient is counseled about smoking and nicotine patch is offered and ordered. MRI of the brain showing left basal ganglion stroke however CT of the head and neck is negative. Patient informed about her diagnosis of stroke. Stop Excedrin and start baby aspirin and Plavix as per neurologist recommendation. Consult in a service for rehab, patient counseled that she agrees needed. 07/07/2019 Patient is clinically stable, she showed some improvement in her right and weakness, also her leg strength is improving gradually and she couldn't walk a little bit however her approximately is significantly weaker than the left side and pain management physician consult is still pending as today's weekend and not available in house. Ejection fraction 60-65% and hemoglobin A1c is 6.2%. Patient is already on aspirin, Plavix and Lipitor. Vitals are stable, blood pressure 167/117. We are going to add Norvasc. Labs reviewed and are unremarkable. 07/08/2019 Patient is sitting up in the chair in no acute distress no acute overnight issues. Patient continues to work with PT/OT and awaiting authorization for inp at[place]hab [place] [facility] [place]. Patient continues to have right- sided weakness in her upper and lower extremities and states it hasn't improved much. Neurology is following closely. Patient underwent an echo showing overall left ventricular function is normal with an EF between 60 and 65%. Blood pressure is more managed and will continue with Norvasc at this time. Review of Systems: Cardiovascular: No reports of chest pain or palpitations Respiratory: No reports of shortness of breath. Reports occasional cough GI: No reports of nausea, vomiting, diarrhea : No reports of dysuria or retention Active Medications Acetaminophen (Tylenol Tab) 325 mg PO Q6HR PRN PRN Reason: Fever and/ or Pain Last Admin: 07/08/19 12:56 Dose: 325 mg Documented by: Hydrocodone Bitart/Acetaminophen ([place] 5-325) 1 each PO Q6HR PRN PRN Reason: Pain Alprazolam (Xanax) 0.5 mg PO TID [facility] Last Admin: 07/08/19 08:54 Dose: 0.5 mg Documented by: Amlodipine Besylate (Norvasc) 5 mg PO DAILY [facility] Last Admin: 07/08/19 08:54 Dose: 5 mg Documented by: Aspirin (Aspirin) 81 mg PO DAILY [facility] Last Admin: 07/08/19 08:56 Dose: 81 mg Documented by: Atorvastatin Calcium (Lipitor) 40 mg PO DAILY [facility] Last Admin: 07/08/19 08:54 Dose: 40 mg Documented by: Clopidogrel Bisulfate (Plavix) 75 mg PO DAILY [facility] Last Admin: 07/08/19 08:54 Dose: 75 mg Documented by: Docusate Sodium (Colace) 100 mg PO BID PRN PRN Reason: Constipation Last Admin: 07/08/19 09:08 Dose: 100 mg Documented by: Heparin Sodium (Porcine) (Heparin) 5,000 unit SQ Q12HR [facility] Last Admin: 07/08/19 08:55 Dose: 5,000 unit Documented by: Hydralazine HCl (Apresoline) 10 mg IVP Q6HR PRN PRN Reason: SBP>190 Lisinopril (Zestril) 10 mg PO DAILY [facility] Last Admin: 07/08/19 08:54 Dose: 10 mg Documented by: Nicotine (Habitrol 21mg/24hr Patch) 1 patch TRANSDERM DAILY [facility] Last Admin: 07/08/19 08:54 Dose: 1 patch Documented by: Pantoprazole Sodium (Protonix) 40 mg PO AC-BRKFST [facility] Last Admin: 07/08/19 05:58 Dose: 40 mg Documented by: Senna (Senokot) 8.6 mg PO DAILY PRN PRN Reason: Constipation Last Admin: 07/08/19 09:08 Dose: 8.6 mg Documented by: Objective - Vital Signs Vital signs: Vital Signs Temp 98.4 F 07/08/19 08:20 Pulse 60 07/08/19 12:10 Resp 17 07/08/19 12:10 BP 142/87 07/08/19 12:10 Pulse Ox 94 L 07/08/19 12:10 Intake & Output 07/07/19 07/08/19 07/08/19 18:59 06:59 18:59 Intake Total 1680 600 Balance 1680 600 Weight 62.5 kg Intake: Oral 1680 600 Other: # Voids 1 1 - Exam GENERAL: The patient is alert and oriented x3, not in any acute distress. Well developed, well nourished. Temp is 98.4F, pulse is 96, respirations are 19, blood pressure is 130/83, oxygen saturation is 97% on room air. HEENT: Pupils are round and equally reacting to light. EOMI. No scleral icterus. No conjunctival pallor. Normocephalic, atraumatic. No pharyngeal erythema. No thyromegaly. CARDIOVASCULAR: S1 and S2 present. No murmurs, rubs, or gallops. PULMONARY: Chest is clear to auscultation, no wheezing or crackles. ABDOMEN: Soft, nontender, nondistended, normoactive bowel sounds. No palpable organomegaly. MUSCULOSKELETAL: No joint swelling or deformity. EXTREMITIES: No cyanosis, clubbing, or pedal edema. -NEUROLOGICAL: patient has deviation of the face towards the left side.her right upper extremity is weak 2-3/5, and the right lower extremity is weak 4/5. Left side strength is 5/5. Sensation is intact. SKIN: No rashes. 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 Neurology following the patient. Awaiting authorization for inpatient rehab at [facility] with Dr. Sigala. PT/OT following. Patient is currently maintained on dual anti-platelet therapy of aspirin and Plavix and will continue at this time. Patient had an echo done showing overall left ventricular systolic function is normal with an EF between 60 and 65% with some mild tricuspid regurgitation present. Due to multiple complex medical issues prognosis is guarded. Further recommendations to follow. Possible discharge in 24-48 hours.
[2019-07-08] MEDS: HYDROcodone/APAP 5-325MG 1 EACH TAB PO PRN ×2 (15:55→23:53)
[2019-07-09 06:28] VITALS: PULSE 84
[2019-07-09] MEDS: ASPIRIN 81 MG PO SCH (08:43)
[2019-07-09] MEDS: LISINOPRIL 10 MG TAB PO SCH (08:43)
[2019-07-09] MEDS: amLODIPine 5 MG TAB PO SCH (08:44)
[2019-07-09] MEDS: ALPRAZolam 0.5 MG TAB PO SCH (08:44)
[2019-07-09] MEDS: PANTOPRAZOLE 40 MG TABLET PO SCH (08:44)
[2019-07-09] MEDS: ATORVASTATIN 40 MG TAB PO SCH (08:44)
[2019-07-09] MEDS: CLOPIDOGREL 75 MG TAB PO SCH (08:44)
[2019-07-09] MEDS: HEPARIN SODIUM,PORCINE 5,000 UNIT/ML 1 ML VIAL SQ SCH (08:44)
--- NOTE | 2019-07-09 10:18 | P.DS ---
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 Jose. Taken 35 minutes. History of present illness This 58-year-old woman was admitted with weakness of the right side of the body. Eval issues showed a left basal ganglia infarct. his was confirmed by an MRI scan.The patient was treated in conjunction with an neurology. Please sreferer to MRI reports. Recommended outpatient neurologyfollow-up. A 2-D echo to Doppler and carotid ultrasound was also done. Patient be transferred to inpatient rehab for further evaluation and treatment. Hypertension was managed. Also recommended to stop smoking. Please refer to medication reconciliation sheet for list of medications. On exam vitals are stable. Mild right hemiparalysis. Cardio system S1 and S2 normal. Respirator system clear to oscillation. Plan - Discharge Summary Discharge Rx Participant: Yes New Discharge Prescriptions: New Aspirin 81 mg PO DAILY chew Docusate [Colace] 100 mg PO BID PRN cap PRN Reason: Constipation Nicotine 21Mg/24Hr Patch [Habitrol] 1 patch TRANSDERM DAILY patch Atorvastatin [Lipitor] 40 mg PO DAILY tab HYDROcodone/APAP 5-325MG [[place] 5-325] 1 each PO Q6HR PRN tab PRN Reason: Pain amLODIPine [Norvasc] 5 mg PO DAILY tab Clopidogrel [Plavix] 75 mg PO DAILY tab Pantoprazole [Protonix] 40 mg PO AC-BRKFST tablet.dr Huff [Senokot] 8.6 mg PO DAILY PRN tab PRN Reason: Constipation Acetaminophen Tab [Tylenol] 325 mg PO Q6HR PRN tab PRN Reason: Fever And/ Or Pain ALPRAZolam [Xanax] 0.5 mg PO TID tab Lisinopril [Zestril] 10 mg PO DAILY tab Continue [id number] [Excedrin] 2 tab PO Q4HR PRN PRN Reason: HEADACHE OR PAIN Discontinued diphenhydrAMINE [Benadryl] 25 mg PO DAILY Discharge Medication List [id number] [Excedrin] 2 tab PO Q4HR PRN 07/05/19 [History] ALPRAZolam [Xanax] 0.5 mg PO TID tab 07/09/19 [Rx] Acetaminophen Tab [Tylenol] 325 mg PO Q6HR PRN tab 07/09/19 [Rx] Aspirin 81 mg PO DAILY chew 07/09/19 [Rx] Atorvastatin [Lipitor] 40 mg PO DAILY tab 07/09/19 [Rx] Clopidogrel [Plavix] 75 mg PO DAILY tab 07/09/19 [Rx] Docusate [Colace] 100 mg PO BID PRN cap 07/09/19 [Rx] HYDROcodone/APAP 5-325MG [[place] 5-325] 1 each PO Q6HR PRN tab 07/09/19 [Rx] Lisinopril [Zestril] 10 mg PO DAILY tab 07/09/19 [Rx] Nicotine 21Mg/24Hr Patch [Habitrol] 1 patch TRANSDERM DAILY patch 07/09/19 [Rx] Pantoprazole [Protonix] 40 mg PO AC-BRKFST tablet. 07/09/19 [Rx] Sennosides [Senokot] 8.6 mg PO DAILY PRN tab 07/09/19 [Rx] amLODIPine [Norvasc] 5 mg PO DAILY tab 07/09/19 [Rx] Follow up Appointment(s)/Referral(s): Lewis Cade MD [REFERRING] - 1 Week Activity/Diet/Wound Care/Special Instructions: diet cardiac low fat Activity as tolerated Follow-up with the neurology as an outpatient. Follow-up with Dr. cade after discharge from rehab. No smoking
[2019-07-09] MEDS: HYDROcodone/APAP 5-325MG 1 EACH TAB PO PRN (10:53)
[2019-07-09 13:28] VITALS: BP 114/77; RESP 16; TEMP 97.6
== END 2019-07-09 13:52 | DRG 65 ==
LOC: EC 12:25 → 3SCARD 15:08 → 6NMEDSUR 07-08 21:47
PROVIDERS: ADMIT Internal Medicine; ATTEND Internal Medicine
DX: I63.81 Other cerebral infarction due to occlusion or stenosis of small artery (principal); G81.91 Hemiplegia, unspecified affecting right dominant side; E03.9 Hypothyroidism, unspecified; E78.1 Pure hyperglyceridemia; E78.5 Hyperlipidemia, unspecified; F17.210 Nicotine dependence, cigarettes, uncomplicated; R20.2 Paresthesia of skin; R29.704 NIHSS score 4; R40.2363 Coma scale, best motor response, obeys commands, at hospital admission; R40.2143 Coma scale, eyes open, spontaneous, at hospital admission; R40.2253 Coma scale, best verbal response, oriented, at hospital admission; F41.9 Anxiety disorder, unspecified; G43.909 Migraine, unspecified, not intractable, without status migrainosus; I10 Essential (primary) hypertension; Z79.82 Long term (current) use of aspirin; Z82.49 Family history of ischemic heart disease and other diseases of the circulatory system; Z82.3 Family history of stroke; Z83.3 Family history of diabetes mellitus; Z88.2 Allergy status to sulfonamides
CPT/HCPCS: 36415; 70450; 70496; 70498; 70551; 71046; 80048; 80053; 80061; 83036; 84484; 85025; 85610; 85730; 93005; 93306; 96360; 96361; 99285

== ENCOUNTER 2019-12-21 11:52 | Emergency (ER) | payer MEDICARE, OTHER ==
[2019-12-21 11:59] VITALS: RESP 18; TEMP 98
[2019-12-21] MEDS ORDERED: PANTOPRAZOLE 40 MG/10 ML VIAL IVP STA (12:21)
[2019-12-21] MEDS ORDERED: ONDANSETRON 4 MG/2 ML VIAL IVP STA (12:21)
[2019-12-21] MEDS ORDERED: SODIUM CHLORIDE 0.9% 500 ML 500 ML IV STA (12:21)
--- NOTE | 2019-12-21 12:26 | ED ---
GI Bleed HPI - General Chief complaint: GI Bleed Stated complaint: Medication Reaction Time Seen by Provider: 12/21/19 12:01 Source: patient Mode of arrival: ambulatory Limitations: no limitations - History of Present Illness Initial comments: Patient is a 59-year-old female with history of CVA presenting to emergency Department with a chief complaint of dark stools. Patient reports she was started on Plavix 3 months ago after her CVA. Patient states 2 days ago she had 2 episodes of black vomit with a possible red tinge. Patient also reports yest erday she had black stools with no bright red blood. Patient reports she 12 to her primary care physician who advised her to come to the ED for further evaluation. Patient does report slight lightheadedness but denies any dizziness at this time. She does report some discomfort in the left flank region and states "there is something under the skin". Does report shortness of breath but states that her baseline after she was discharged from the hospital several months ago. Denies any chest pain nausea abdominal pain urinary or vaginal symptoms. - Related Data Home Medications Medication Instructions Recorded Confirmed [id number] [id number] 2 tab PO Q4HR PRN 07/05/19 07/05/19 [Excedrin] Previous Rx's Medication Instructions Recorded ALPRAZolam [Xanax] 0.5 mg PO TID tab 07/09/19 Acetaminophen Tab [Tylenol] 325 mg PO Q6HR PRN tab 07/09/19 Aspirin 81 mg PO DAILY chew 07/09/19 Atorvastatin [Lipitor] 40 mg PO DAILY tab 07/09/19 Clopidogrel [Plavix] 75 mg PO DAILY tab 07/09/19 Docusate [Colace] 100 mg PO BID PRN cap 07/09/19 HYDROcodone/APAP 5-325MG [[place] 1 each PO Q6HR PRN tab 07/09/19 5-325] Lisinopril [Zestril] 10 mg PO DAILY tab 07/09/19 Nicotine 21Mg/24Hr Patch [Habitrol] 1 patch TRANSDERM DAILY patch 07/09/19 Pantoprazole [Protonix] 40 mg PO AC-BRKFST tablet. 07/09/19 Sennosides [Senokot] 8.6 mg PO DAILY PRN tab 07/09/19 amLODIPine [Norvasc] 5 mg PO DAILY tab 07/09/19 Allergies Allergy/AdvReac Type Severity Reaction Status Date / Time Sulfa (Sulfonamide Allergy Unknown Verified 12/21/19 11:58 Antibiotics) Review of Systems ROS Statement: Those systems with pertinent positive or pertinent negative responses have been documented in the HPI. ROS Other: All systems not noted in ROS Statement are negative. Past Medical History Past Medical History: CVA/TIA, Hypertension, Thyroid Disorder History of Any Multi-Drug Resistant Organisms: None Reported Additional Past Surgical History / Comment(s): thyroid removed Past Anesthesia/Blood Transfusion Reactions: No Reported Reaction Past Psychological History: No Psychological Hx Reported Smoking Status: Current every day smoker Past Alcohol Use History: None Reported Past Drug Use History: Marijuana - Past Family History Father Family Medical History: Diabetes Mellitus, Hypertension Mother Family Medical History: Hypertension General Exam Limitations: no limitations General appearance: alert, in no apparent distress Head exam: Present: atraumatic, normocephalic, normal inspection Eye exam: Present: normal appearance, PERRL, EOMI. Absent: other (No signs of pallor conjunctiva) Pupils: Present: normal accommodation ENT exam: Present: normal exam, normal oropharynx, mucous membranes moist, other (Mucous members pink) Neck exam: Present: normal inspection, full ROM Respiratory exam: Present: normal lung sounds bilaterally. Absent: respiratory distress, wheezes Cardiovascular Exam: Present: regular rate, normal rhythm, normal heart sounds GI/Abdominal exam: Present: soft. Absent: distended, tenderness, guarding, other (No palpable deformity in the left flank region) Rectal exam: Present: normal inspection, normal rectal tone. Absent: black stool Extremities exam: Present: normal inspection, full ROM Back exam: Present: normal inspection, full ROM Neurological exam: Present: alert, oriented X3 Psychiatric exam: Present: normal affect, normal mood Skin exam: Present: warm, dry, intact, normal color Course Vital Signs 12/21/19 11:55 Temperature 98.0 F Pulse Rate 108 H Respiratory 18 Rate Blood Pressure 123/86 O2 Sat by Pulse 99 Oximetry Medical Decision Making - Medical Decision Making Patient is a 59-year-old female presenting to the emergency department with chief complaint of black stool. No abdominal tenderness noted on physical examination. Patient did have 2 episodes of vomiting 2 days ago with slight tinge of red. And one episode of black stool yesterday. No signs of mucosal or conjunctival pallor. EKG shows sinus rhythm. A cold stool was negative. CBC is unremarkable. No signs of anemia. CMP is unremarkable. Coags within normal limits. Patient was given 1 L bolus fluids and Protonix. Patient is resting comfortably and states she would like to go home. No signs of a GI bleed at this time. Return parameters were thoroughly discussed patient is understanding and agreeable. Case discussed with physician. - Lab Data Result diagrams: 12/21/19 12:39 12/21/19 12:39 Lab Results 12/21/19 12/21/19 12/21/19 Range/Units 12:35 12:39 12:39 WBC 5.6 (3.8-10.6) k/uL RBC 3.80 (3.80-5.40) m/uL Hgb 11.8 (11.4-16.0) gm/dL Hct 35.9 (34.0-46.0) % MCV 94.6 (80.0-100.0) fL MCH 31.1 (25.0-35.0) pg MCHC 32.9 (31.0-37.0) g/dL RDW 13.6 (11.5-15.5) % Plt Count 353 (150-450) k/uL Neutrophils % (Manual) 40 % Band Neutrophils % 1 % Lymphocytes % (Manual) 46 % Monocytes % (Manual) 5 % Eosinophils % (Manual) 6 % Basophils % (Manual) 2 % Neutrophils # (Manual) 2.20 (1.3-7.7) k/uL Lymphocytes # (Manual) 2.58 (1.0-4.8) k/uL Monocytes # (Manual) 0.28 (0-1.0) k/uL Eosinophils # (Manual) 0.34 (0-0.7) k/uL Basophils # (Manual) 0.11 (0-0.2) k/uL Nucleated RBCs 0 (0-0) /100 WBC Manual Slide Review Performed Reactive Lymphocytes Present APTT 22.4 (22.0-30.0) sec Sodium (137-145) mmol/L Potassium (3.5-5.1) mmol/L Chloride (98-107) mmol/L Carbon Dioxide (22-30) mmol/L Anion Gap mmol/L BUN (7-17) mg/dL Creatinine (0.52-1.04) mg/dL Est GFR (CKD-EPI)AfAm (>60 ml/min/1.73 sqM) Est GFR (CKD-EPI)NonAf (>60 ml/min/1.73 sqM) Glucose (74-99) mg/dL Plasma Lactic Acid Jefry (0.7-2.0) mmol/L Calcium (8.4-10.2) mg/dL Total Bilirubin (0.2-1.3) mg/dL AST (14-36) U/L ALT (4-34) U/L Alkaline Phosphatase (38-126) U/L Troponin I (0.000-0.034) ng/mL Total Protein (6.3-8.2) g/dL Albumin (3.5-5.0) g/dL Stool Occult Blood Negative (Negative) Blood Type Recheck Bld Type Recheck Status Spec Expiration Date 12/21/19 12/21/19 12/21/19 Range/Units 12:39 12:39 12:39 WBC (3.8-10.6) k/uL RBC (3.80-5.40) m/uL Hgb (11.4-16.0) gm/dL Hct (34.0-46.0) % MCV (80.0-100.0) fL MCH (25.0-35.0) pg MCHC (31.0-37.0) g/dL RDW (11.5-15.5) % Plt Count (150-450) k/uL Neutrophils % (Manual) % Band Neutrophils % % Lymphocytes % (Manual) % Monocytes % (Manual) % Eosinophils % (Manual) % Basophils % (Manual) % Neutrophils # (Manual) (1.3-7.7) k/uL Lymphocytes # (Manual) (1.0-4.8) k/uL Monocytes # (Manual) (0-1.0) k/uL Eosinophils # (Manual) (0-0.7) k/uL Basophils # (Manual) (0-0.2) k/uL Nucleated RBCs (0-0) /100 WBC Manual Slide Review Reactive Lymphocytes APTT (22.0-30.0) sec Sodium 140 (137-145) mmol/L Potassium 4.2 (3.5-5.1) mmol/L Chloride 108 H (98-107) mmol/L Carbon Dioxide 24 (22-30) mmol/L Anion Gap 8 mmol/L BUN 17 (7-17) mg/dL Creatinine 0.58 (0.52-1.04) mg/dL Est GFR (CKD-EPI)AfAm >90 (>60 ml/min/1.73 sqM) Est GFR (CKD-EPI)NonAf >90 (>60 ml/min/1.73 sqM) Glucose 102 H (74-99) mg/dL Plasma Lactic Acid Jefry 1.2 (0.7-2.0) mmol/L Calcium 9.4 (8.4-10.2) mg/dL Total Bilirubin 0.3 (0.2-1.3) mg/dL AST 38 H (14-36) U/L ALT 66 H (4-34) U/L Alkaline Phosphatase 120 (38-126) U/L Troponin I <0.012 (0.000-0.034) ng/mL Total Protein 6.6 (6.3-8.2) g/dL Albumin 3.7 (3.5-5.0) g/dL Stool Occult Blood (Negative) Blood Type Recheck Bld Type Recheck Status Spec Expiration Date 12/21/19 Range/Units 12:39 WBC (3.8-10.6) k/uL RBC (3.80-5.40) m/uL Hgb (11.4-16.0) gm/dL Hct (34.0-46.0) % MCV (80.0-100.0) fL MCH (25.0-35.0) pg MCHC (31.0-37.0) g/dL RDW (11.5-15.5) % Plt Count (150-450) k/uL Neutrophils % (Manual) % Band Neutrophils % % Lymphocytes % (Manual) % Monocytes % (Manual) % Eosinophils % (Manual) % Basophils % (Manual) % Neutrophils # (Manual) (1.3-7.7) k/uL Lymphocytes # (Manual) (1.0-4.8) k/uL Monocytes # (Manual) (0-1.0) k/uL Eosinophils # (Manual) (0-0.7) k/uL Basophils # (Manual) (0-0.2) k/uL Nucleated RBCs (0-0) /100 WBC Manual Slide Review Reactive Lymphocytes APTT (22.0-30.0) sec Sodium (137-145) mmol/L Potassium (3.5-5.1) mmol/L Chloride (98-107) mmol/L Carbon Dioxide (22-30) mmol/L Anion Gap mmol/L BUN (7-17) mg/dL Creatinine (0.52-1.04) mg/dL Est GFR (CKD-EPI)AfAm (>60 ml/min/1.73 sqM) Est GFR (CKD-EPI)NonAf (>60 ml/min/1.73 sqM) Glucose (74-99) mg/dL Plasma Lactic Acid Jefry (0.7-2.0) mmol/L Calcium (8.4-10.2) mg/dL Total Bilirubin (0.2-1.3) mg/dL AST (14-36) U/L ALT (4-34) U/L Alkaline Phosphatase (38-126) U/L Troponin I (0.000-0.034) ng/mL Total Protein (6.3-8.2) g/dL Albumin (3.5-5.0) g/dL Stool Occult Blood (Negative) Blood Type Recheck No Previous Record Bld Type Recheck Status CABO Indicated Spec Expiration Date 12/24/20192338 Disposition Clinical Impression: Melena, Nausea and vomiting Disposition: HOME SELF-CARE Condition: Stable Instructions (If sedation given, give patient instructions): Gastrointestinal Bleeding (ED) Additional Instructions: Follow with her primary care. Return to emergency department if symptoms worsen. Is patient prescribed a controlled substance at d/c from ED?: No Referrals: Kathrin Santos DO [Primary Care Provider] - 1-2 days Time of Disposition: 13:36
[2019-12-21 12:56] LABS: HCT 35.9 % (34.0-46.0); HGB 11.8 gm/dL (11.4-16.0); MCH 31.1 pg (25.0-35.0); MCHC 32.9 g/dL (31.0-37.0); MCV 94.6 fL (80.0-100.0); Mean Platelet Volume 6.8; Platelet Count 353 k/uL (150-450); RDW 13.6 % (11.5-15.5); WBC 5.6 k/uL (3.8-10.6)
[2019-12-21 13:05] LABS: ALT 66 U/L (4-34); AST 38 U/L (14-36); African American GFR (CKD) >90 (>60 ml/min/1.73 sqM); Albumin 3.7 g/dL (3.5-5.0); Alkaline Phosphatase 120 U/L (38-126); Anion Gap 8 mmol/L; Blood Urea Nitrogen 17 mg/dL (7-17); Calcium 9.4 mg/dL (8.4-10.2); Carbon Dioxide 24 mmol/L (22-30); Chloride 108 mmol/L (98-107); Glucose 102 mg/dL (74-99); Non-African American GFR(CKD) >90 (>60 ml/min/1.73 sqM); Potassium 4.2 mmol/L (3.5-5.1); Sodium 140 mmol/L (137-145); Total Bilirubin 0.3 mg/dL (0.2-1.3); Total Protein 6.6 g/dL (6.3-8.2)
[2019-12-21 13:20] LABS: Band Neutrophils % 1 %; Basophils # (M) 0.11 k/uL (0-0.2); Eosinophils # (M) 0.34 k/uL (0-0.7); Lymphocytes # (M) 2.58 k/uL (1.0-4.8); Monocytes # (M) 0.28 k/uL (0-1.0); Neutrophils % (M) 40 %; Nucleated Red Blood Cells 0 /100 WBC (0-0); Total Cells Counted 100
[2019-12-21 13:21] LABS: Reactive Lymphocytes Present
[2019-12-21 13:39] VITALS: BP 121/91; PULSE 88
== END 2019-12-21 13:39 | disposition home or self-care (01) ==
LOC: EC 11:52
DX: K92.1 Melena (principal); R11.2 Nausea with vomiting, unspecified; R42 Dizziness and giddiness; R06.02 Shortness of breath; I10 Essential (primary) hypertension; F17.200 Nicotine dependence, unspecified, uncomplicated; Z88.2 Allergy status to sulfonamides; Z86.73 Personal history of transient ischemic attack (TIA), and cerebral infarction without residual deficits
CPT/HCPCS: 36415; 93005; 86900; 86901; 80053; 83605; 84484; 85025; 85730; 86850; 82272; 99285; 96374; 96375; 96361; J2405; C9113

== ENCOUNTER 2020-09-01 16:47 | Emergency (ER) | payer MEDICARE, OTHER ==
[2020-09-01] MEDS ORDERED: KETOROLAC 15 MG/ML 1 ML VIAL IM STA (17:26)
--- NOTE | 2020-09-01 17:53 | ED ---
Back Pain HPI - General Chief Complaint: Back Pain/Injury Stated Complaint: back pain Time Seen by Provider: 09/01/20 17:10 Source: patient, RN notes reviewed Limitations: no limitations - History of Present Illness Initial Comments: Patient is a 59-year-old female presents to the emergency room complaining of left-sided flank and upper back pain. She noted this pain has been going on since October been constant. She notes that the pain is a 10 out of 10. Patient was writhing around getting up walking shooting down rolling around in bed. BeforeWalking around patient was calm sitting in wheelchair in no apparent distress or pain. She noted that her primary care and other providers have found nothing wrong with her. She said she wanted pain medication. Rest of interview is difficult due to patient rolling around walking and complaining of being in pain. She denied any chest pain shortness of breath headache nausea vomiting diarrhea constipation history of kidney stones fever fatigue chills Any injury or trauma. - Related Data Home Medications Medication Instructions Recorded Confirmed [id number] 2 tab PO Q4HR PRN 07/05/19 07/05/19 [Excedrin] Previous Rx's Medication Instructions Recorded ALPRAZolam [Xanax] 0.5 mg PO TID tab 07/09/19 Acetaminophen Tab [Tylenol] 325 mg PO Q6HR PRN tab 07/09/19 Aspirin 81 mg PO DAILY chew 07/09/19 Atorvastatin [Lipitor] 40 mg PO DAILY tab 07/09/19 Clopidogrel [Plavix] 75 mg PO DAILY tab 07/09/19 Docusate [Colace] 100 mg PO BID PRN cap 07/09/19 HYDROcodone/APAP 5-325MG [[place] 1 each PO Q6HR PRN tab 07/09/19 5-325] Nicotine 21Mg/24Hr Patch [Habitrol] 1 patch TRANSDERM DAILY patch 07/09/19 Pantoprazole [Protonix] 40 mg PO AC-BRKFST tablet. 07/09/19 Sennosides [Senokot] 8.6 mg PO DAILY PRN tab 07/09/19 amLODIPine [Norvasc] 5 mg PO DAILY tab 07/09/19 lisinopriL [Zestril] 10 mg PO DAILY tab 07/09/19 Allergies Allergy/AdvReac Type Severity Reaction Status Date / Time Sulfa (Sulfonamide Allergy Unknown Verified 09/01/20 17:03 Antibiotics) Review of Systems ROS Statement: Those systems with pertinent positive or pertinent negative responses have been documented in the HPI. ROS Other: All systems not noted in ROS Statement are negative. Past Medical History Past Medical History: CVA/TIA, Hypertension, Thyroid Disorder History of Any Multi-Drug Resistant Organisms: None Reported Additional Past Surgical History / Comment(s): thyroid removed Past Anesthesia/Blood Transfusion Reactions: No Reported Reaction Past Psychological History: No Psychological Hx Reported Smoking Status: Current every day smoker Past Alcohol Use History: None Reported Past Drug Use History: Marijuana - Past Family History Father Family Medical History: Diabetes Mellitus, Hypertension Mother Family Medical History: Hypertension General Exam Limitations: no limitations General appearance: alert, in no apparent distress Head exam: Present: atraumatic, normocephalic, normal inspection Eye exam: Present: normal appearance, PERRL, EOMI. Absent: scleral icterus, conjunctival injection, periorbital swelling ENT exam: Present: normal exam, mucous membranes moist Neck exam: Present: normal inspection. Absent: tenderness, meningismus, lymphadenopathy Respiratory exam: Present: normal lung sounds bilaterally. Absent: respiratory distress, wheezes, rales, rhonchi, stridor Cardiovascular Exam: Present: regular rate, normal rhythm, normal heart sounds. Absent: systolic murmur, diastolic murmur, rubs, gallop, clicks GI/Abdominal exam: Present: soft, normal bowel sounds. Absent: distended, tenderness, guarding, rebound, rigid Extremities exam: Present: normal inspection, full ROM, normal capillary refill. Absent: tenderness, pedal edema, joint swelling, calf tenderness Back exam: Present: normal inspection, tenderness (Generalized left back to light palpation.) Neurological exam: Present: alert, oriented X3, CN II-XII intact Psychiatric exam: Present: normal affect, normal mood Skin exam: Present: warm, dry, intact, normal color. Absent: rash Course Vital Signs 09/01/20 16:57 Temperature 99.2 F Pulse Rate 99 Respiratory 18 Rate Blood Pressure 135/104 O2 Sat by Pulse 97 Oximetry - Reevaluation(s) Reevaluation #1: 09/01/20 18:41 Patient was sleeping in wheelchair, when I walked in she woke up and started saying that her pain was still severe and that it had migrated to several other places and then back to the original place. Medical Decision Making - Medical Decision Making 59-year-old female complaining of left-sided back pain. Pain medication ordered and given, we'll reinterview patient when she is more calm Half milligram of Dilaudid was given. Case was discussed with Dr. Hilliard, was decided the patient go home with a short prescription of muscle relaxers. Disposition Clinical Impression: Muscle spasm Disposition: HOME SELF-CARE Condition: Stable Instructions (If sedation given, give patient instructions): Acute Low Back Pain (ED) Additional Instructions: Please return to the Emergency Department if symptoms worsen or any other concerns. Follow-up primary care 1-2 days. Take prescriptions as prescribed.To not drive or operate heavy machinery while on muscle relaxers. Take [id number] pain medication for conservative management. Is patient prescribed a controlled substance at d/c from ED?: No Referrals: Kathrin Santos DO [Primary Care Provider] - 1-2 days Time of Disposition: 19:29
[2020-09-01] MEDS ORDERED: HYDROmorphone 0.5 MG/0.5 ML SYRINGE IM STA (18:40)
[2020-09-01 19:55] VITALS: BP 146/96; PULSE 91; RESP 17; TEMP 98.6
[2020-09-01 20:02] LABS: Appearance,Urine Turbid (Clear); Bilirubin,Urine Negative (Negative); Blood,Urine Negative (Negative); Color,Urine Yellow; Glucose,Urine (UA) Negative (Negative); Ketones,Urine Negative (Negative); Leukocyte Esterase,Urine Moderate (Negative); Mucus,Urine Many /hpf; Nitrite,Urine Negative (Negative); Protein,Urine 1+ (Negative); RBC,Urine 4 /hpf (0-5); Specific Gravity,Urine 1.036 (1.001-1.035); Squamous Epithelial Cell,Urine 6 /hpf (0-4); WBC,Urine 35 /hpf (0-5)
== END 2020-09-01 19:51 | disposition home or self-care (01) ==
LOC: EC 16:47
DX: M62.838 Other muscle spasm (principal); F17.200 Nicotine dependence, unspecified, uncomplicated; Z88.2 Allergy status to sulfonamides; Z86.73 Personal history of transient ischemic attack (TIA), and cerebral infarction without residual deficits
CPT/HCPCS: 81001; 99283; 96372 ×2; J1885; J1170

== ENCOUNTER → 2020-11-26 | Outpatient (CLI) | payer MEDICARE, OTHER ==
--- NOTE | 2020-11-26 15:53 | US ---
EXAMINATION TYPE: US venous doppler duplex LE RT DATE OF EXAM: 11/26/2020 3:38 PM COMPARISON: NONE CLINICAL HISTORY: M79.661 Pain in rt lower limb. Chronic leg pain that has gotten worse per patient. No redness. No swelling. SIDE PERFORMED: Right TECHNIQUE: The lower extremity deep venous system is examined utilizing real time linear array sonog barbara with graded compression, doppler sonography and color-flow sonography. VESSELS IMAGED: Common Femoral Vein Deep Femoral Vein Greater Saphenous Vein * Femoral Vein Popliteal Vein Small Saphenous Vein * Proximal Calf Veins (* superficial vessels) Right Leg: Negative for DVT Grayscale, color doppler, spectral doppler imaging performed of the deep veins of the right lower ext remity. There is normal flow, compressibility, vascular waveforms. IMPRESSION: No ultrasound evidence for acute DVT in the right lower extremity.
== END | disposition home or self-care (01) ==
LOC: RADUSWWP 15:25
PROVIDERS: ATTEND Family Medicine
DX: M79.661 Pain in right lower leg (principal)

== ENCOUNTER 2024-05-03 07:48 | Day surgery (SDC) | payer MEDICARE, OTHER ==
[2024-05-03] MEDS: IV FLUID CONTINUATION 1,000 ML IV ONE (08:09)
[2024-05-03 08:22] LABS: Glucose,Whole Blood 100 mg/dL (70-110)
[2024-05-03 08:26] VITALS: TEMP 97
[2024-05-03] MEDS: LACTATED RINGERS 1,000 ML IV SCH (08:26)
[2024-05-03] MEDS: NA PHOS,M-B/NA PHOS,DI-BA 133 ML ENEMA RECTAL STA (08:55)
[2024-05-03] MEDS ORDERED: PROPOFOL 10 MG/ML 20 ML VIAL IV ONE (09:23)
[2024-05-03] MEDS ORDERED: LIDOCAINE 1% INJ 10MG/ML (20 ML MDV) ONE (09:23)
--- NOTE | 2024-05-03 09:43 | P.PCN ---
Date of Procedure: 05/03/24 Procedure(s) Performed: BRIEF HISTORY: Patient is a 63-year-old pleasant white female scheduled for an elective colonoscopy as a part of screening for colon cancer/positive occult blood in the stool PROCEDURE PERFORMED: Colonoscopy. PREOPERATIVE DIAGNOSIS: Screening for colon cancer/positive occult blood in the stool. IV sedation per Anesthesia. PROCEDURE: After informed consent was obtained, the patient, was brought into the endoscopy unit. IV sedation was administered by Anesthesia under continuous monitoring. Digital rectal examination was normal. Initially the Olympus CF-160 flexible video colonoscope was then inserted in the rectum, gradually advanced into the cecum without any difficulty. Careful examination was performed as the scope was gradually being withdrawn. Ileocecal valve and the appendiceal orifice were visualized and appeared normal. Prep was extremely poor in the right colon of the transverse colon. Radiation was performed. Centimeters of the mucosa of the cecum, ascending colon, transverse colon, could not be adequately visualized. Thorough irrigation was performed. There was some solid chunky stool noted in this area. Mucosa of the descending colon, sigmoid colon, and rectum appeared normal. Scattered left-sided diverticulosis seen. Retroflexion was performed in the rectum and no lesions were seen. The patient tolerated the procedure well. IMPRESSION: Poor prep involving the cecum ascending colon and transverse colon and adequate visualization was not possible Rest of the colon appeared normal Scattered sigmoid diverticulosis RECOMMENDATIONS: Findings of this examination were discussed with the patient as well as her family. She was advised to have repeat screening colonoscopy in 3 years because of extremely poor prep that was noted on today's examination.
[2024-05-03 10:05] VITALS: BP 146/89; PULSE 76; RESP 20
== END 2024-05-03 10:38 | disposition home or self-care (01) ==
LOC: ORWHC2ENDO 07:48
PROVIDERS: ATTEND Internal Medicine Gastroenterology
CPT/HCPCS: 45378